=== PATIENT | male | born 1950 | race Caucasian/White ===

== ENCOUNTER 2021-07-30 20:37 | Emergency (ER) | payer MEDICARE, OTHER ==
[2021-07-30 21:51] LABS: HEMOGLOBIN 15.4 gm/dl (14.0-17.5); RED BLOOD COUNT 5.06 M/UL (4.20-5.50); WHITE BLOOD COUNT 8.9 K/UL (4.5-11.0)
[2021-07-30 22:12] LABS: BUN/CREATININE RATIO 13 (0-10)
[2021-07-31] MEDS ORDERED: PHENERGAN 25 MG25 M1 PO (01:27)
== END 2021-07-31 02:00 | disposition home or self-care (01) ==
LOC: ER1 20:37
PROVIDERS: Physician Assistant
DX: K85.90 Acute pancreatitis without necrosis or infection, unspecified (principal); R07.9 Chest pain, unspecified; R10.9 Unspecified abdominal pain
CPT/HCPCS: 80053; 82150; 82550; 82553; 83605; 83690; 84484; 85025; 93005; 99284; Q9967